=== PATIENT | male | born 1960 | race African-American/Black ===

== ENCOUNTER 2023-10-08 14:06 | Emergency (ER) | payer OTHER, SELFPAY ==
[2023-10-08] MEDS ORDERED: HYDROcodone/Acetaminophen 5/325 mg Tablet ONE (14:34)
[2023-10-08] MEDS ORDERED: predniSONE 20 MG TAB ONE (14:35)
[2023-10-08] MEDS ORDERED: diphenhydrAMINE 25 MG CAP ONE (14:35)
== END 2023-10-08 14:59 | disposition home or self-care (01) ==
LOC: CSHERS 14:06
DX: T63.461A Toxic effect of venom of wasps, accidental (unintentional), initial encounter (principal)
CPT/HCPCS: 99282; J7512